=== PATIENT | male | born 1965 | race Caucasian/White ===

== ENCOUNTER → 2017-01-08 | Day surgery (SDC) | payer BC ==
[2017-01-08] VITALS (7 sets, daily range): BP systolic 111–123; BP diastolic 63–85
[~2017-01-08] VITALS: Ht 188 cm; Wt 89.4 kg
[~2017-01-08] MED LIST: Alfentanil 2ml Inj ONE; Atropine Inj 1mg/10ml Syr IV PRN; BSS 15ml BTL ONE; BSS 500ml btl ONE; Bupivacaine 0.75% 30ml vial INJ ONE; Cyclopentolate 1% Opth Sol ONE; Dexamethasone 4mg/ml vial ONE; DiphenhydrAMINE 50mg/ml Inj IVP PRN; Goniosol 2.5% Opth Soln - 15ml ONE; Hydromorphone 0.5mg/0.5ml inj IVP PRN; Indocyanine Green 25mg Inj INJ ONE; Kenalog-40 1ml Vial ONE; Ketorolac 30mg Inj IV PRN; Ketorolac 60mg Inj IV PRN; LORazepam Inj 2mg/ml 1ml IV PRN; LR 1000ml 1,000 ML IVLG SCH; LR 1000ml ONE; Labetalol 5mg/ml 20ml vial IV PRN; Lidocaine 1% MPF 10mg/ml 5ml ONE; Lidocaine 2% MPF 5ml Vial INJ ONE; Maxitrol Opth Susp 5ml ONE; Meperidine 25mg/ml Inj IV PRN; Metoclopramide 10mg/2ml Inj IVP PRN; Midazolam 2mg/2ml Inj IVP PRN; Midazolam 2mg/2ml Inj ONE; NKM; NS Irrig 1000ml ONE; Norco 5mg/325mg tab ORAL PRN; Norco 7.5mg/325mg tab ORAL PRN; Oxycodone/Acetaminophen 5-325 ORAL PRN; Phenylephrine 2.5% Op Soln ONE; Povidone-Iodine 5% opth solution ONE; Propofol 10mg/ml 20ml IV ONE; Sterile Water Irrig 1000ml IRRIG ONE; Tetracaine 0.5% Opth Soln ONE; fentaNYL 100 mcg/2 mL IV PRN
[2017-01-08] MEDS: Phenylephrine 2.5% Op Soln RIGHT EYE SCH ×3 (06:29→06:48)
[2017-01-08] MEDS: Cyclopentolate 1% Opth Sol RIGHT EYE SCH ×3 (06:29→06:48)
--- NOTE | 2017-01-08 07:45 | Pre-Procedure Note/Attestation ---
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 I attest that, if there was a reasonable possibility of needing a blood transfusion, the patient (or the patient's legal sales representative business courses) was given the [facility] standardized written summary, pursuant to the Curly Hedy Blood Safety Act ([place] Health and Safety Code # 1645, as amended). I attest that I re-evaluated the patient just prior to the surgery and that there has been no change in the patient's H&P, except as documented below: NAVYA COOK Jan 08, 2017 07:45
--- NOTE | 2017-01-08 08:03 | Anethesia Preoperative Eval ---
Anesthesia Pre-op PMH/ROS General Date of Evaluation: Jan 08, 2017 Time of Evaluation: 07:31 Anesthesiologist: Mary ASA Score: ASA 1 Mallampati Score Class I : Soft palate, uvula, fauces, pillars visible Class II: Soft palate, uvula, fauces visible Class III: Soft palate, base of uvula visible Class IV: Only hard plate visible Mallampati Classification: Class II Surgeon: Myrna Diagnosis: Epiretinal Membrane OD Surgical Procedure: Vitrectomy OD Anesthesia History: none Family History: no anesthesia problems Allergies: Coded Allergies: No Known Allergies (Unverified , 01/07/17) Medications: see eMAR Past Medical History PSxH Narrative: Nose Sx Anesthesia Pre-op Phys. Exam Physician Exam Last Vital Signs Date Time Temp Pulse Resp B/P Pulse Ox O2 Delivery O2 Flow Rate FiO2 01/08/17 06:34 97.3 62 20 111/70 97 Room Air Constitutional: NAD Neurologic: CN 2-12 intact Cardiovascular: RRR Respiratory: CTA Gastrointestinal: S/NT/ND Airway Exam Mallampati Score: Class II MO: full ROM: full Teeth: intact Anesthesia Pre-op A/P Risk Assessment & Plan Assessment: ASA 1 Plan: GA Status Change Before Surgery: Nikita Stafford MD Jan 08, 2017 08:03
--- NOTE | 2017-01-08 08:07 | Immediate Post-Op Evaluation ---
Immediate Post-Op Evalulation Immediate Post-Op Evalulation Procedure: Vitrectomy OD Date of Evaluation: Jan 08, 2017 Time of Evaluation: 09:00 IV Fluids: 1000 LR Blood Products: 0 Estimated Blood Loss: 1 Urinary Output: 0 Blood Pressure Systolic: 112 Blood Pressure Diastolic: 72 Pulse Rate: 61 Respiratory Rate: 16 O2 Sat by Pulse Oximetry: 100 Temperature (Fahrenheit): 98.6 Nausea: No Vomiting: No Complications 0 Patient Status: awake, reacts, patent, none Hydration Status: adequate Nikita Hernandez MD Jan 08, 2017 08:07
--- NOTE | 2017-01-08 08:08 | 48 Hour Post Anesthesia Eval ---
Post Anesthesia Evaluation Procedure: Vitrectomy OD Date of Evaluation: Jan 08, 2017 Time of Evaluation: 11:06 Blood Pressure Systolic: 109 0: 71 Pulse Rate: 67 Respiratory Rate: 18 Temperature (Fahrenheit): 98.6 O2 Sat by Pulse Oximetry: 100 Airway: patent Nausea: No Vomiting: No Pain Intensity: 1 Hydration Status: adequate Cardiopulmonary Status: Stable Mental Status/LOC: patient returned to baseline Follow-up Care/Observations: 0 Post-Anesthesia Complications: 0 Follow-up care needed: ready to discharge Nikita Hernandez MD Jan 08, 2017 08:07
--- NOTE | 2017-01-08 08:58 | Brief Operative Note ---
Immediate Post Operative Note Operative Note Pre-op Diagnosis: Epiretinal membrane with macular pucker, right eye Procedure: Pars plana vitrectomy, membrane peeling, right eye Post-op Diagnosis: same as pre-op Findings: consistent w/pre-op dx studies Surgeon: Navya Cook MD Accounts Clerk: none Anesthesiologist: Nikita Hernandez MD Anesthesia: MAC Specimen: none Complications: none Condition: stable Fluids: none Estimated Blood Loss: none Drains: none Implant(s) used?: No NAVYA COOK Jan 08, 2017 08:58
--- NOTE | 2017-01-08 11:18 | Operative Note - Dictated ---
DATE OF OPERATION: 01/08/2017 PREOPERATIVE DIAGNOSIS: Epiretinal membrane with macular pucker, right eye. POSTOPERATIVE DIAGNOSIS: Epiretinal membrane with macular pucker, right eye. PROCEDURE: Pars plana vitrectomy with membrane peeling, right eye. SURGEON: Calderon Norris M.D ASSISTANCE SURGEON: None. ANESTHESIA: Monitored Acute Coordinator. ANESTHESIOLOGIST: Nikita Hernandez M.D. COMPLICATIONS: None. Procedure And Findings: The patient was anesthetized using a retrobulbar injection consisting of 8 mL of a 50:50 mixture of lidocaine 2% and Marcaine 0.75%. When adequate anesthesia was obtained, he was prepped and draped in the usual sterile manner for ophthalmic surgery. A wire lid speculum was placed between the lids. A 23-gauge trocar was used to place the cannula 3.5 millimeters posterior to the surgical limbus in the infratemporal quadrant. An infusion line was hooked to the cannula and verified to be in the posterior chamber prior to turning on the infusion. In turn, superior nasal ans superior temporal cannulas were placed. A fiberoptic light pipe and vitrectomy instrument were inserted into the eye. The vitrectomy was performed with elevation of the posterior hyaloid face and trimming of the vitreous back to the base for 360 degrees. ICG, which was diluted was injected into the eye and allowed to sit on the macular area for 2 minutes. It was then washed out of the eye leaving a nice stain on the retinal membrane and the internal limiting membrane. Using a stephanie dusted membrane scraper, an edge of the ILM was elevated and then peeled off from across the macula in several large sheets. This included the epiretinal membrane, as well as the ILM. The peel extending from the optic nerve head to one optic nerve head to fovea distance temporal to the fovea and from arcade to arcade. There were no complications during the peel. The peripheral retina was examined and found to be without breaks or tears. The instruments were removed from the eye and the superior cannulas were removed. The infusion line cannula were removed leaving the abnormal intra-ocular pressure and a good fluid fill. A subconjunctival injection consisting of vancomycin and Decadron was given. The patient was patched with atropine and Maxitrol drops and sent to the recovery room in good condition. Calderon Norris M.D. DR: Beatriz JOB#: [id number] CC:
== END | disposition home or self-care (01) ==
LOC: SUR 06:06
DX: H35.371 Puckering of macula, right eye (principal); J32.9 Chronic sinusitis, unspecified
CPT/HCPCS: 67041; J1100; J2250; J2704; J3370; J3490; J7120; 94003; 94150